=== PATIENT | male | born 1955 | race Caucasian/White ===

== ENCOUNTER 2019-04-11 02:04 | Inpatient (IN) ==
--- NOTE | 2019-04-11 03:38 | PROVIDER DOCUMENTATION ---
HPI-Abdominal Pain/GI Problem - General Chief Complaint: Urinary Retention Stated Complaint: EXTREMITY PAIN Time Seen by Provider: 04/11/19 03:33 Source: patient Allergies/Adverse Reactions: Patient Allergies Allergy/AdvReac Type Severity Reaction Status Date / Time No Known Allergies Allergy Verified 04/11/19 02:25 Home Medications: Home Medication List Medication Instructions Recorded Confirmed Last Taken Type Baclofen 10 mg PO ORDERED 04/11/19 04/11/19 Unknown History Linaclotide [Linzess] 2 cap PO ORDERED 04/11/19 04/11/19 Unknown History Lisinopril 5 mg PO DAILY 04/11/19 04/11/19 Unknown History - History of Present Illness-ABD Nature of Presenting Problems: 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 denies: fever/chills Last BM: 2 days ago Dark Stools Present?: reports: none noticed Rectal Bleeding: reports: none Bruising or Bleeding Gums?: No Similar Symptoms Previously?: No Recently seen or treated by another doctor?: No Review of Systems - Adult - REVIEW OF SYSTEMS - ADULT Constitutional: reports: no symptoms reported, weight loss Eyes: reports: no symptoms reported Ears, Nose, Mouth & Throat: reports: no symptoms reported Cardiovascular: reports: no symptoms reported Respiratory: reports: shortness of breath, wheezing Gastrointestinal: reports: constipation, diarrhea, nausea, poor appetite Genitourinary: reports: no symptoms reported, frequency Integumentary: reports: no symptoms reported Neurological: reports: no symptoms reported Psychiatric: reports: no symptoms reported Endocrine: reports: no symptoms reported Hematologic/Lymphatic: reports: no symptoms reported Allergic/Immunologic: reports: no symptoms reported Past History - Adult - PAST MEDICAL HISTORY-ADULT Review of Records: reports: Nursing Assessment Review, Medications Reviewed, Social history reviewed & non-contributory. Cardiovascular: reports: HTN Respiratory: reports: lung disease Gastrointestinal: reports: obstruction Genitourinary: reports: incontinence Physical Exam-General - PHYSICAL EXAM-ADULT Initial Vital Signs Reviewed: Yes - CONSTITUTIONAL General Appearance: alert, no apparent distress - HEAD, EARS, NOSE, MOUTH & THROAT HENMT: moist mucous membranes, normal ENT inspection - NECK Neck: supple - RESPIRATORY Respiratory: lungs clear - CARDIOVASCULAR Cardiovascular: regular rate, rhythm - GASTROINTESTINAL (ABDOMEN) Abdominal Exam: non tender, soft - LYMPHATIC Lymphatic: no adenopathy - MUSCULOSKELETAL Back Exam: no CVA tenderness - SKIN Integumentary: normal color, normal turgor Progress - PLAN OF CARE/RESULTS Progress/Plan/Lab Results: Vital Signs - 8 hr 04/11/19 02:20 Temperature 99.8 F H Pulse Rate 116 H Respiratory Rate 20 Blood Pressure 95/75 Result Diagrams: 04/13/19 04:25 04/14/19 04:10 - XRAY 1 XRAY Study: Abdomen (EXAM: KUB ABDOMEN HISTORY: constipated TECHNIQUE: Abdomen single view COMPARISON: 11/10/2016 FINDINGS: There is bowel in the right abdomen dilated to 10 cm. Gastric tube in the mid abdomen. The distal colon is not dilated. There are surgical clips in the right upper quadrant. No organomegaly. IMPRESSION: Obstructed dilated colon in the right abdomen. Possible distal obstruction or volvulus. Electronically signed by Silverio Juarez 04/11/2019 6:05 AM) Departure - Departure Date of Disposition Decision: 04/11/19 Time of Disposition Decision: 03:44 DIAGNOSIS: Bowel obstruction Qualifiers: Intestinal obstruction type: volvulus Qualified Code(s): K56.2 - Volvulus Disposition: ADMITTED INPATIENT 09 Certified Medical Emergency: Emergent Condition: Stable - Critical Care Note This patient required my direct & personal management of CC.: No Attestation - Physician/ LUIS Attestation Patient care was provided by Advanced Practice Provider:: No The physician spent face to face time with patient:: Yes Advanced Practice Provider documentation review:: Supervising physician onsite and consulted in the evaluation and care of this patient. The physician did have a face to face encounter with the patient.
[2019-04-11 04:30] LABS: BASO# 0.01 X1000 (0.0-0.2); BASO% 0.1 % (0.0-0.8); HEMATOCRIT 46.6 % (42.0-52.0); HEMOGLOBIN 15.8 g/dL (14.0-18.0); IMM GRAN# 0.04 X1000 (0.0-0.04); IMM GRAN% 0.2 % (0.0-0.5); LYMPH# 0.56 X1000 (1.2-3.4); LYMPH% 3.5 % (20.5-51.1); MCH 29.5 PG (27-31); MCHC 33.9 g/dL (33-37); MCV 87.1 FL (81-99); MONO# 0.69 X1000 (0.11-0.59); MONO% 4.3 % (1.7-9.3); MPV 9.9 FL (7.4-10.4); NEUT# 14.85 X1000 (1.4-6.5); NEUT% 91.9 % (42.2-75.2); PLT 213 X1000 (130-400); RBC 5.35 XMIL (4.7-6.1); RDW 14.1 % (11.5-14.5); WBC 16.15 X1000 (4.8-10.8)
[2019-04-11 04:42] LABS: AGAP 17; ALBUMIN 4.5 g/dL (3.5-5.0); ALKALINE PHOSPHATASE 81 U/L (32-122); BUN 21 mg/dL (8-22); CHLORIDE 101 mmol/L (98-107); COSMO 284; CREATININE 0.7 mg/dL (0.7-1.2); ESTIMATED GFR > 60; GLUCOSE 163 mg/dL (70-104); GOT 24 U/L (10-34); GPT 22 U/L (10-44); POTASSIUM 3.5 mmol/L (3.5-5.1); SODIUM 139 mmol/L (136-145); TCO2 21 mmol/L (25-35); TOTAL PROTEIN 7.3 g/dL (6.3-8.3)
[2019-04-11 05:59] LABS: BILIRUBIN URINE 1+ (NEGATIVE); BLOOD URINE 4+ (NEGATIVE); CLARITY CLEAR (CLEAR); COLOR AMBER; GLUCOSE URINE NEGATIVE (NEGATIVE); KETONE URINE 1+(Small) mg/dL (NEGATIVE); LEUKOCYTES URINE 1+ (NEGATIVE); NITRITE URINE POSITIVE (NEGATIVE); PH URINE 6.5; PROTEIN URINE 2+(100 mg/dL) mg/dL (NEGATIVE); UROBILINOGEN URINE 4 mg/dL
[2019-04-11 06:02] LABS: URINE EPITHELIAL CELLS <10 /HPF (<10); URINE WBC <10 /HPF (<10)
[2019-04-11 06:03] LABS: URINE BACTERIA 4+ /HFP; URINE RBC TNTC /HPF (<10); URINE YEAST NONE SEEN /HPF
[2019-04-11 06:04] LABS: URINE SOURCE CLEAN CATCH
--- NOTE | 2019-04-11 06:07 | Diag Imaging Result Doc PS360 ---
EXAM: KUB ABDOMEN HISTORY: constipated TECHNIQUE: Abdomen single view COMPARISON: 11/10/2016 FINDINGS: There is bowel in the right abdomen dilated to 10 cm. Gastric tube in the mid abdomen. The distal colon is not dilated. There are surgical clips in the right upper quadrant. No organomegaly. IMPRESSION: Obstructed dilated colon in the right abdomen. Possible distal obstruction or volvulus. Electronically signed by Silverio Juarez 04/11/2019 6:05 AM
[2019-04-11] MEDS ORDERED: NS 1,000 ML IV ONE ×2 (06:22→11:05)
[2019-04-11] MEDS ORDERED: LEVAQUIN 500 MG/D5W 500 MG/100 ML IVPB IV ONE (06:40)
[2019-04-11 07:10] LABS: INR 1.08; PROTIME 14.6 Seconds (11.0-16.0)
[2019-04-11 07:11] LABS: PTT 36.1 Seconds (22.3-41.8)
[2019-04-11] MEDS ORDERED: SODIUM CHLORIDE 0.9% INJ SCH (10:00)
[2019-04-11] MEDS ORDERED: NS 1,000 ML IV SCH (10:00)
[2019-04-11] MEDS ORDERED: PROTONIX IV SCH (10:00)
[2019-04-11] MEDS ORDERED: ZOFRAN IV PRN (10:00)
--- NOTE | 2019-04-11 10:22 | Diag Imaging Result Doc PS360 ---
CT ABDOMEN/PELVIS W/O CONTRAST - 04/11/2019 INDICATION: volvulus/obstruction COMPARISON: Abdomen x-ray from earlier today FINDINGS: Other than some mild atelectasis the lung bases are clear and the heart size is normal. There is a G-tube in the stomach which is mostly collapsed. The sigmoid colon is extremely distended with gas. There is also volvulus of the sigmoid colon. The rectum is collapsed. There is moderate pneumatosis coli of the sigmoid colon. No definite free air. There is trace ascites. There is diffuse dilation of all the small bowel with fluid. There is mild bilateral hydronephrosis. There is a small stone in each kidney measuring 2 mm on the right and 4 mm on the left. Ureters are normal. The prostate is enlarged. Urinary bladder appears normal. The bones are intact. IMPRESSION: Sigmoid colon volvulus with severe gaseous distention. There is also pneumatosis coli of the sigmoid colon. This report was discussed with RT Chelsey on 04/11/2019 at 10:20 AM and was readback. This exam was performed using automated exposure control, adjustment of mA or kV according to patient size, and/or use of iterative reconstruction technique Electronically signed by Hossein Gunter 04/11/2019 10:20 AM
--- NOTE | 2019-04-11 10:24 | Diag Imaging Result Doc PS360 ---
CHEST-1 VIEW - 04/11/2019 INDICATION: ALS, leukocytosis COMPARISON: 01/29/2011 FINDINGS: There is severe gaseous distention of the sigmoid colon which reaches all the way under the right hemidiaphragm. Lung volumes are severely low. There is some hazy atelectasis in the lung bases. Otherwise no infiltrates. Heart size is normal. IMPRESSION: Nonspecific findings. Electronically signed by Hossein Gunter 04/11/2019 10:22 AM
[2019-04-11] MEDS ORDERED: DIPRIVAN 1% ONE (11:34)
[2019-04-11] MEDS ORDERED: QUELICIN (DOSE) ONE (11:36)
[2019-04-11] MEDS ORDERED: ROBINUL ONE (11:36)
[2019-04-11] MEDS ORDERED: XYLOCAINE-MPF 2% ONE (11:36)
[2019-04-11] MEDS ORDERED: FENTANYL ONE (11:39)
--- NOTE | 2019-04-11 12:07 | EKG Report ---
Test Performed on : 04/11/2019 12:00:36 PM Test Reason : surgery Blood Pressure : / mmHG Vent. Rate : 118 BPM Atrial Rate : 118 BPM P-R Int : 194 ms QRS Dur : 080 ms QT Int : 286 ms P-R-T Axes : 043 -08 207 degrees QTc Int : 400 ms Sinus tachycardia. Septal infarct , age undetermined Abnormal ECG When compared with ECG of 29-JAN-2011 15:23, Vent. rate has increased BY 60 BPM Nonspecific T wave abnormality now evident in Inferior leads T wave inversion now evident in Lateral leads Increased baseline artifact limits interpretation Confirmed by Danette DUMONT, Brandan Chacko ([id number]) on 04/11/2019 1:23:29 PM
[2019-04-11] MEDS ORDERED: MARCAINE 0.25% PF ONE (12:14)
[2019-04-11] MEDS ORDERED: SODIUM CHLORIDE 0.9% 10 ML ONE (12:15)
[2019-04-11] MEDS ORDERED: EXPAREL 1.3% ONE (12:15)
[2019-04-11] MEDS ORDERED: ZOFRAN ONE (12:32)
[2019-04-11] MEDS: ZOSYN 3.375 GM in NS 50 ML IV SCH ×3 (12:34→23:23)
[2019-04-11] MEDS ORDERED: ZEMURON ONE ×2 (13:13→13:28)
[2019-04-11] MEDS ORDERED: ALBUMIN 25% ONE (13:40)
[2019-04-11] MEDS ORDERED: SODIUM CHLORIDE 0.9% 20 ML ONE (14:21)
[2019-04-11] MEDS ORDERED: NEO-SYNEPHRINE ONE (14:21)
[2019-04-11] MEDS ORDERED: NORCURON ONE (14:21)
[2019-04-11 14:40] LABS: URINE SOURCE CATH
[2019-04-11 14:44] LABS: BILIRUBIN URINE NEGATIVE (NEGATIVE); BLOOD URINE MODERATE (NEGATIVE); COLOR ORANGE; GLUCOSE URINE NEGATIVE (NEGATIVE); KETONE URINE 10 mg/dL (NEGATIVE); LEUKOCYTES URINE NEGATIVE (NEGATIVE); NITRITE URINE NEGATIVE (NEGATIVE); PH URINE 5.5; PROTEIN URINE 100 mg/dL (NEGATIVE); SP GRAVITY URINE 1.027; TURBIDITY URINE HAZY (CLEAR); UROBILINOGEN URINE 2 mg/dL (NORMAL)
[2019-04-11 14:52] LABS: UR EPITHELIAL CELLS <10 /HPF (<10); URINE BACTERIA NEGATIVE /HPF; URINE RBC 20-40 /HPF (<10); URINE WBC 20-40 /HPF (<10)
--- NOTE | 2019-04-11 14:56 | HISTORY AND PHYSICAL ---
CHIEF COMPLAINT: Abdominal pain, back pain, and nausea. HISTORY OF PRESENT ILLNESS: This is a 63-year-old gentleman with a history of ALS and hypertension. He presented to the emergency room with his complaining of constipation, back pain, and decreased urinary output. Mr. Muniz has a set bowel regimen that they keep on Tuesdays and . The stated that the patient had been in his normal state of health, that on Wednesday she gave him his normal 2 Linzess pills, and 2 hours later gave him coffee and prune juice. He had no bowel movement, very little urine output. He began to get nauseated and have back pain. Therefore, she brought him into the emergency room for evaluation. Of note, the patient is nonverbal. He does communicate with an iPad as well as he nods yes and no. Bladder scan was performed in the emergency room, 145 mL. A KUB revealed obstructed dilated colon in the right abdomen, dilated to 10 cm with possible distal obstruction or volvulus. Dr. Contreras, General Surgery, and Dr. Cobb, Gastroenterology, were consulted. CT of the abdomen and pelvis without contrast was performed which revealed sigmoid colon volvulus with severe gases distention with pneumatosis coli of the sigmoid colon. Dr. Contreras and Dr. Cobb did discuss the results of the scan as well as options with the patient and his and it was decided that the patient will be taken to surgery for a colon resection and a colostomy. PAST MEDICAL HISTORY: Hypertension, ALS. PAST SURGICAL HISTORY: Cholecystectomy, G-tube insertion, and vasectomy. SOCIAL HISTORY: The patient lives with his . He denies alcohol, tobacco, or illicit drug use. ALLERGIES: No known drug allergies. HOME MEDICATIONS: Baclofen, Linzess 2 times a week, and lisinopril 5 mg daily. REVIEW OF SYSTEMS: Discussed with the patient and the with pertinent positives as stated in the HPI. He denied any syncope or dizziness, any chest pain, palpitations, any increased shortness of breath, cough, fever, chills, any vomiting, diarrhea, black or bloody vomitus or stools, any hematuria, dysuria, frequency, urgency. PHYSICAL EXAMINATION: GENERAL: This is a 63-year-old gentleman who is sitting up in the bed, in no distress. VITAL SIGNS: Blood pressure is 110/82 with a heart rate of 118, respirations are 20 to 22, temperature is 98.1 degrees, with O2 saturations 91 to 94% on 2 L nasal cannula. HEENT: Head is normocephalic, atraumatic. Mucous membranes are dry. NECK: Supple with trachea midline. No JVD. CARDIOVASCULAR: Regular rate and rhythm. S1 and S2 appreciated. He has no lower extremity edema. Calves are nontender bilateral. Peripheral pulses palpable x4 extremities. PULMONARY: Breath sounds are clear. No increased work of breathing noted. Chest rises and falls symmetrically with respiration. Chest wall is nontender to palpation. GASTROINTESTINAL: Abdomen is soft, nontender, nondistended. Bowel sounds in all 4 quadrants. NEUROLOGIC: He is alert. He is nonverbal. He does nod yes and no and communicates with an iPad. LABS: WBC is 16.1, with hemoglobin 15.8, hematocrit 46.6, with platelets of 213,000. INR is 1.08. Sodium 139, potassium 3.5, BUN 21, creatinine 0.7, with a glucose of 163. Urinalysis is positive for nitrites with 1+ bilirubin, too numerous to count red blood cells, less than 10 microscopic and epithelial cells. Blood cultures and urine culture are pending. Abdominal x-ray reveals to obstructed dilated colon in the right abdomen, possible distal obstruction or volvulus. CT of the abdomen and pelvis without contrast reveals sigmoid colon volvulus with severe gaseous distention and pneumatosis coli of the sigmoid colon. Chest x-ray reveals nonspecific findings. There is some hazy atelectasis in the lung bases. Otherwise, no infiltrates. There is gaseous distention of the sigmoid colon which reaches all the way under the right hemidiaphragm. Lung volumes are severely low. ASSESSMENT AND PLAN: 1. Sigmoid colon volvulus with severe gaseous distention with pneumatosis coli of the sigmoid colon. The patient will be taken to surgery for a colostomy and colon resection per Dr. Contreras. We will start Zosyn for antibiotic coverage. Continue with IV hydration. 2. Leukocytosis secondary to above. Antibiotics as stated above. 3. Hypertension. We will monitor blood pressure and we can continue vital signs as appropriate. 4. Tachycardia. The patient is dry. We will give a liter bolus, start saline at 125, and further IV fluids will be per Dr. Contreras postop. 5. Amyotrophic lateral sclerosis. 6. Bilateral atelectasis in the bases. We will have diligent pulmonary care secondary to the patient's ALS. Start incentive spirometer q.4 hours with coughing and deep breathing. Supplemental oxygen as needed. 7. Further treatments pending hospital course. Plan was discussed with Dr. Daniel. Dictated by JUAN M Acosta for Erick Daniel MD cc: JUAN M Acosta MD
--- NOTE | 2019-04-11 14:59 | GASTROENTEROLOGY CONSULTATION ---
DATE: 04/11/2019 REASON FOR CONSULTATION: Sigmoid volvulus. HISTORY OF PRESENT ILLNESS: Mr. Bharat Muniz is a 63-year-old gentleman with a history of hypertension, ALS with paraplegia and partial quadriplegia, status post PEG, and chronic constipation, who presents with a 1-day history of obstipation. History is obtained by the patient's . The patient is on a scheduled bowel regimen through his PEG tube every Wednesday and when he receives oral Linzess, prune juice, coffee, and water through his PEG tube. This regimen usually results in him having a bowel movement. Occasionally, he will need a Dulcolax suppository if he does not have an adequate response. Yesterday, after being given his usual bowel regimen for constipation, he had a tiny bowel movement and then subsequently developed severe back pain and increased work of breathing and sweats. They called his primary care doctor who recommended that he come to the emergency room to be evaluated for a fecal impaction. He has some nausea with scant emesis that was nonbloody. No fevers, hematochezia, abdominal pain, abdominal distention. He has a history of fecal impactions in the past requiring enemas for disimpaction. His last colonoscopy was in 2006 which was unremarkable. He does have a family history of colon cancer in his father, diagnosed in his 60s. REVIEW OF SYSTEMS: As per HPI. He does have lower extremity and upper extremity weakness. He is paraplegic in the lower extremities. He is able to control his urination and bowels. No history of incontinence. He is nonverbal at baseline but uses an I-Pad to communicate and is able to communicate through gestures. No weight loss over the last 6 months. He was in his usual state of health until yesterday. PAST MEDICAL HISTORY: ALS, hypertension, status post PEG. PAST SURGICAL HISTORY: Cholecystectomy, PEG tube placement in 2013, vasectomy. FAMILY HISTORY: Family history of colorectal cancer in the father. SOCIAL HISTORY: No smoking, alcohol, or drug use. MEDICATIONS: Linzess, baclofen, and lisinopril. ALLERGIES: No known drug allergies. PHYSICAL EXAMINATION: Vital Signs: Temperature of 98.0 degrees, heart rate of 118, respiratory rate 24, blood pressure 110/82, O2 saturation 91% on 3 L nasal cannula. General: The patient chronically ill-appearing, in no acute distress. HEENT: He has some temporal wasting. Extraocular motor is intact. Moist mucous membranes. Neck: Supple. No JVD or lymphadenopathy. Cardiac: He is tachycardic. No murmurs. Lungs: Clear to auscultation bilaterally. He does have some mild increased work of breathing. Abdomen: Tympanic in the lower abdomen. Some mild tenderness to palpation on deep palpation in the left and right lower quadrants. Extremities: No clubbing, cyanosis, or edema. He does have some contractures in his upper extremities. LABS: White count of 16.1, hemoglobin is 14.8, platelets of 213,000. INR of 1.08. Chemistry showed a glucose of 163, bicarb 21, lactate of 1.8. UA shows positive nitrite and 1+ white blood cells. IMAGING: KUB shows the bowel dilation in the right abdomen measuring 10 cm. There is a gastric tube in the mid abdomen. The distal colon is not dilated. There are surgical clips in right upper quadrant. No organomegaly. Impression: Obstructed dilated colon in the right abdomen, possible distal obstruction versus volvulus. CT of the abdomen and pelvis subsequently showed sigmoid volvulus with severe gaseous distention. There is pneumatosis coli of the sigmoid colon. There is trace ascites, mild bilateral hydronephrosis. There is a small stone in the kidney measuring 2 mm on the right and 4 mm on the left. Ureters are normal. The prostate and large urinary bladder appear normal. G-tube in the stomach which is mostly collapsed. ASSESSMENT AND PLAN: Mr. Bharat Muniz is a 63-year-old gentleman with amyotrophic lateral sclerosis and paraplegia, upper extremity week. Presents with a sigmoid volvulus and signs of possible bowel necrosis with pneumatosis coli in the sigmoid colon. I have discussed this case with Dr. Contreras of surgery and the family at bedside. The patient is a high risk for complications with endoscopic reduction of volvulus given the pneumatosis coli seen on sigmoid. He does have some tachycardia and a white count, concerning for systemic inflammatory response syndrome. He was started on Levaquin for a possible urinary tract infection. We will start him on intravenous fluids and put him on empiric Zosyn for possible infection. The patient is nothing per oral and the plan is for him to go to surgery for a partial colectomy with end colostomy. # Sigmoid volvulus # Pneumatosis coli # SIRS # Leukocytosis # Constipation # ALS Thank you for this consult. We will follow with you. Please call with any questions or concerns. ESTEVAN
[2019-04-11 15:09] LABS: URINE CASTS GRANULAR PRESENT; URINE CRYSTALS NONE SEEN; URINE SMALL ROUND CELLS TRANS PRESENT; URINE YEAST PRESENT
--- NOTE | 2019-04-11 15:17 | GENERAL SURGERY CONSULTATION ---
DATE: 04/11/2019 REASON FOR CONSULTATION: Sigmoid volvulus. HISTORY OF PRESENT ILLNESS: This is a 63-year-old male with long-standing ALS, who normally has scheduled bowel movements twice a week. After a bowel prep yesterday, he did not respond to his usual bowel prep and began complaining of nausea and back pain, which was unusual for him. He was brought to the emergency room for evaluation and was found to have evidence of sigmoid volvulus. He has subsequently undergone a CT scan which shows sigmoid volvulus and pneumatosis coli in the wall of the sigmoid colon. There is no free air. Currently, he is still complaining of some back pain. No relieving or exacerbating factors. No known fever or chills. He had a little bit of vomiting. PAST MEDICAL HISTORY: ALS, hypertension, constipation. HOME MEDICATIONS: Baclofen, Linzess, lisinopril. PAST SURGICAL HISTORY: Laparoscopic cholecystectomy, multiple gastrostomy tube placements. FAMILY HISTORY: Reviewed and noncontributory. SOCIAL HISTORY: Negative for tobacco, alcohol or illicit drug use. He is cared for by a very attentive family. ALLERGIES: No known drug allergies. REVIEW OF SYSTEMS: Ten systems reviewed and negative, except as noted above. PHYSICAL EXAMINATION: Vital Signs: Temperature 98 degrees, pulse 118, blood pressure 110/82, O2 saturation 91%, respiratory rate 24. General: This is a chronically ill-appearing male. He looks his stated age. HEENT: Normocephalic, atraumatic. Extraocular muscles are intact. Pupils equal, round, reactive to light. Sclerae anicteric. Neck: Supple. No thyromegaly. CV: Tachycardic. Respiratory: Mildly tachypneic, but without increased work of breathing. GI: Somewhat firm, mildly distended and tympanic. There is some tenderness to palpation throughout. The exam is limited by the patient's ALS. No hernias appreciated. Extremities: His arms and hands are contracted. There is no clubbing or cyanosis or edema of the legs. Skin: Warm and dry. No rash. LABORATORY: White cell count 16, hemoglobin 15.8, hematocrit 46. Electrolytes reviewed and unremarkable. Serum lactate 3.6 on presentation, 1.8 at 8:50 this morning. Urinalysis appears to be positive with 4+ bacteria and positive nitrite. IMAGING: Plain abdominal x-rays and CT scan of the abdomen reveal sigmoid volvulus with possible ischemia in the wall of the colon. ASSESSMENT AND PLAN: A 63-year-old male with sigmoid volvulus with concern for ischemic bowel. We will proceed urgently to the operating room for sigmoidectomy and end colostomy. He will be given a liter of bolus, as well as start him on Zosyn. I discussed the risks and benefits with the patient and family, including bleeding, infection, injury to surrounding organs, postoperative cardiopulmonary complications, including respiratory failure and other imponderables. They understand and agree to proceed. cc: Toan Contreras MD
--- NOTE | 2019-04-11 15:44 | Diag Imaging Result Doc PS360 ---
CHEST-1 VIEW - 04/11/2019 INDICATION: intubation COMPARISON: 10:13 AM FINDINGS: There is an endotracheal tube in good position at T4-T5. Lung volumes are improved. There is decrease in the patchy infiltrates in the lung bases. Heart size is normal. IMPRESSION: Successful intubation. Improvement in the patchy infiltrates in the lung bases. Electronically signed by Hossein Gunter 04/11/2019 3:41 PM
[2019-04-11 15:52] LABS: ALLEN TEST YES; BE -1.9 mmoll (-3.0-3.0); BLOOD TYPE ARTERIAL; HCO3-(ACT) 23.4 mmoll (20.0-26.0); METHB 1.4 % (0.0-1.5); O2(CT) 19.1 mL/dL (15.0-23.0); O2HB 97.3 % (95.0-99.0); PO2(98.6) 215 mmHg (60-100); SAMPLE BLOOD; SAO2 100.4 % (95.0-100.0); SRATE 10 BPM; THB 13.6 g/dL (11.5-17.4); TVOL 500 mL; pH(98.6) 7.29 (7.35-7.45)
[2019-04-11 15:54] LABS: MODALITY VENTILATOR; PCO2(98.6) 53 mmHg (35-45)
[2019-04-11] MEDS ORDERED: ATIVAN IV PRN (16:25)
[2019-04-11] MEDS ORDERED: NS 500 ML IV ONE (16:27)
[2019-04-11 16:55] LABS: HEMATOCRIT 41.6 % (42.0-52.0); HEMOGLOBIN 13.9 g/dL (14.0-18.0)
[2019-04-11] MEDS: NS 1,000 ML IV SCH ×2 (16:58→17:42)
[2019-04-11] MEDS: MORPHINE IV PRN (17:43)
[2019-04-11] MEDS: NEXIUM IV SCH (18:21)
[2019-04-11] MEDS: SODIUM CHLORIDE 0.9% INJ SCH (18:21)
[2019-04-11] MEDS ORDERED: DIPRIVAN 1% 1,000 MG/100 ML BOTTLE IV SCH (18:45)
[2019-04-11] MEDS: SODIUM BICARBONATE 8.4% 100 MEQ in D5W 1,000 ML IV SCH (20:27)
[2019-04-11] MEDS: PERIDEX MT SCH (20:27)
--- NOTE | 2019-04-11 20:51 | OPERATIVE NOTE ---
PROCEDURE DATE: 04/11/2019 PREOPERATIVE DIAGNOSIS: Sigmoid volvulus with ischemic bowel. POSTOPERATIVE DIAGNOSIS: Sigmoid volvulus with ischemic bowel. PROCEDURE: Open sigmoidectomy with Vamsi pouch and end colostomy. SURGEON: Toan Contreras MD PATENT DRAFTER: Efrain Mensah MD ANESTHESIA: General. ESTIMATED BLOOD LOSS: 50 mL COMPLICATIONS: None apparent. SPECIMEN: Sigmoid colon. FINDINGS: The sigmoid colon had volvulus and was very distended. There was evidence along a short segment of the sigmoid wall of ischemia and probable gangrene; however, there was no gross perforation. There was no abscess. At the conclusion, his colostomy had good viability, color and blood flow to it, and the rectal stump also appeared to be viable. TECHNIQUE: The patient was brought to the operating room. He was placed on the table supine. General anesthesia was induced. A Lisa catheter was placed he was prepped and draped in usual sterile fashion. A lower midline incision was made with a knife through the skin and subcutaneous tissue, followed by cautery down to the fascia and peritoneum. I entered the peritoneum carefully between hemostats and Metzenbaum scissors. While trying to open up the peritoneum and fascia, his abdominal wall was quite rigid and the printed circuit board designer informed me that he apparently was resistant to his muscle relaxant. They were able to give him another dose or a second muscle relaxant, and this did help some with his abdominal wall mobility. To get better exposure, I did have to extend the incision up to nearly the xiphoid process. Dr. Mensah was present throughout all turner aspects of the case and assisted with exposure, the resection and the creation of the colostomy. Once the linea alba was completely incised, his sigmoid colon was found easily. It was very enlarged and ischemic appearing. I was able to manipulate it out of the abdominal cavity and eviscerate it. When this was done I was able to correct the volvulus. There was no gross contamination. A segment of the sigmoid wall did appear to be at least ischemic if not gangrenous. I decided to do the resection with a colostomy as planned. I stapled across the sigmoid/descending colon junction where it appeared viable, with a linear stapler and then across the rectosigmoid junction in the same fashion. The stapled ends of our proximal colon and rectal stump appeared to be viable. They had good color with pulsatile flow in the mesentery. I then divided the mesentery of the sigmoid colon using the LigaSure device, coming across the inferior mesenteric artery with the LigaSure device as well. Once the colon was removed, I inspected the mesentery. There were no signs of any bleeding or hematoma. I then made a circular incision just on the lateral edge of the rectus below the umbilicus, and incised through the rectus muscle with cautery so that I could admit 2 fingers through this wound. The stapled end of the descending colon was brought up through the wound. We then closed the peritoneum with a running #1 Vicryl and then closed the fascia with a running #1 looped Maxon suture. The skin was closed with skin clips. I then covered the incision with a blue towel. I removed the staple line from the stoma. There was good pink mucosa with some with bleeding edges. The bleeding was controlled with cautery. I then everted and matured the ostomy in a Lindsey fashion using interrupted 3-0 Polysorb. An ostomy appliance was placed. He tolerated this surgery without apparent complication, and was transferred to the ICU in guarded condition. cc: Toan Contreras MD MTDD
--- NOTE | 2019-04-11 21:11 | PROGRESS NOTE ---
DATE: 04/11/2019 The patient has no major complaints. He came in for abdominal pain. He has a ALS and bowel issues associated. He has developed significant obstruction in his colon. On abdominal exam, it was a tight tympanic abdomen. CT showed a sigmoid colon volvulus and pneumatosis. He underwent surgery. Postop, he is seen. He is intubated and still on the ventilator with heart rate in the 130s, which appears to be a sinus tach. He is currently on IV Zosyn, and we will continue to monitor closely. His relative tachycardia may be complicated, just blood loss, dehydration, sepsis. We will continue to treat these measures and follow. I do think we need to aggressively extubate because of his ALS issues, but I also do not think we need to excessively focus on extubation in light of possible sepsis and other issues. Agree with Zosyn and hydration. We will monitor his hemoglobin and hematocrit closely and follow. Pulmonary has been consulted for ventilatory management. This is a 32 minute dictation. cc: Erick Daniel MD MTDD
[2019-04-12] MEDS: SODIUM BICARBONATE 8.4% 100 MEQ in D5W 1,000 ML IV SCH (03:36)
--- NOTE | 2019-04-12 04:27 | PULMONOLOGY CONSULTATION ---
DATE: 04/11/2019 REQUESTING PHYSICIAN: Dr. Toan Contreras. REASON FOR CONSULTATION: Respiratory failure after surgery. HISTORY OF PRESENT ILLNESS: Mr. Muniz is a 63-year-old white male who was diagnosed with ALS approximately 10 years ago. He has had progressive decline. He is essentially bedbound. He does use a BiPAP on a p.r.n. basis. The patient presented to the emergency room early this morning with increasing abdominal distention and pain, and a failed routine of his bowel regimen. CT scan of the abdomen and pelvis was performed, which was consistent with a sigmoid volvulus and severe distention along with pneumatosis coli of the sigmoid colon. He was taken to the operating room by Dr. Toan Contreras and underwent a colonic resection. His ventilatory status was marginal and anesthesia has recommended he remain on mechanical ventilation through the evening. PAST MEDICAL HISTORY: 1. ALS with some ventilatory limitation. 2. Hypertension. 3. Status post gastrostomy tube placement. 4. Status post laparoscopic cholecystectomy. SOCIAL HISTORY: Negative for tobacco or alcohol use. He has a very attentive . FAMILY HISTORY: Noncontributory to current presentation. REVIEW OF SYSTEMS: Limited given his intubation status. PHYSICAL EXAMINATION: General: Reveals a thin man, chronically ill-appearing male with muscle wasting, who does respond to voice. He is having some cough attempts while on mechanical ventilation. Vital signs: Blood pressure 124/87, heart rate 99, respiratory rate 20, oxygen saturation 100%. HEENT: Pupils are equal and reactive. Oropharynx appears clear, but evaluation is limited with endotracheal tube in place. There is increased secretions. Neck: Supple. Chest: Reveals occasional rhonchi bilaterally. Cardiac: Increased rate. Regular rhythm. Abdomen: Soft with surgical dressings in place. Extremities: Reveal significant muscle wasting and increased flaccidity of his major muscle groups. LABORATORIES: Chest x-ray reveals endotracheal tube in good position with bibasilar infiltrates, which are less prominent than his morning film. IMPRESSION: A 63-year-old with 1. Amyotrophic lateral sclerosis. 2. Colonic volvulus requiring urgent surgery. 3. Acute hypoxemic respiratory failure. 4. Bibasilar atelectasis. RECOMMENDATION: 1. Continue ventilatory support through the evening. 2. We will collect sputum for C and S given the minor changes on x-ray. 3. We will initiate bronchodilators for pulmonary toilet. 4. Sedation as needed for comfort through the evening. 5. Anticipate weaning trial with possible extubation tomorrow. cc: Magnus Iyer MD
[2019-04-12 04:29] LABS: ALLEN TEST YES; BE 5.7 mmoll (-3.0-3.0); BLOOD TYPE ARTERIAL; HCO3-(ACT) 29.4 mmoll (20.0-26.0); O2(CT) 16.9 mL/dL (15.0-23.0); O2HB 97.8 % (95.0-99.0); PCO2(98.6) 33 mmHg (35-45); PO2(98.6) 148 mmHg (60-100); SAMPLE BLOOD; SAO2 100.2 % (95.0-100.0); SRATE 10 BPM; THB 12.1 g/dL (11.5-17.4); TVOL 500 mL; pH(98.6) 7.54 (7.35-7.45)
[2019-04-12 04:30] LABS: MODALITY VENTILATOR
[2019-04-12] MEDS: ZOSYN 3.375 GM in NS 50 ML IV SCH ×4 (04:33→23:16)
[2019-04-12 05:43] LABS: HEMATOCRIT 34.9 % (42.0-52.0); HEMOGLOBIN 11.7 g/dL (14.0-18.0); LYMPH# 0.71 X1000 (1.2-3.4); LYMPH% 8.4 % (20.5-51.1); MCH 29.6 PG (27-31); MCHC 33.5 g/dL (33-37); MCV 88.4 FL (81-99); MONO# 0.46 X1000 (0.11-0.59); MONO% 5.4 % (1.7-9.3); MPV 10.4 FL (7.4-10.4); NEUT# 7.33 X1000 (1.4-6.5); NEUT% 86.2 % (42.2-75.2); PLT 158 X1000 (130-400); RBC 3.95 XMIL (4.7-6.1)
[2019-04-12 05:51] LABS: MAGNESIUM 1.6 mg/dL (1.5-2.7); PHOSPHORUS 1.8 mg/dL (2.7-4.5)
[2019-04-12 05:58] LABS: AGAP 8; ALB/GLOB RATIO 1.4; ALBUMIN 2.8 g/dL (3.5-5.0); ALKALINE PHOSPHATASE 46 U/L (32-122); BUN 18 mg/dL (8-22); CALCIUM 7.7 mg/dL (8.8-10.2); CHLORIDE 104 mmol/L (98-107); COSMO 279; CREATININE 0.5 mg/dL (0.7-1.2); ESTIMATED GFR > 60; GLUCOSE 120 mg/dL (70-104); GOT 28 U/L (10-34); GPT 18 U/L (10-44); POTASSIUM 3.2 mmol/L (3.5-5.1); SODIUM 138 mmol/L (136-145); TCO2 26 mmol/L (25-35); TOTAL BILIRUBIN 0.79 mg/dL (0.20-1.00); TOTAL PROTEIN 4.8 g/dL (6.3-8.3)
[2019-04-12] MEDS ORDERED: LEVAQUIN 500 MG/D5W 500 MG/100 ML IVPB IV SCH (06:00)
--- NOTE | 2019-04-12 06:45 | Diag Imaging Result Doc PS360 ---
CHEST-PORTABLE - 04/12/2019 INDICATION: dyspnea COMPARISON: 04/11/2019 FINDINGS: Stable endotracheal tube in good position. Stable mild hazy atelectasis in the lower lobes bilaterally, right greater than left. No new infiltrates. Heart size remains top normal. No pneumothorax or large pleural effusion. IMPRESSION: No change from prior. Electronically signed by Hossein Gunter 04/12/2019 6:43 AM
[2019-04-12 07:36] LABS: LYMPHS 10 % (21-51); SEGS 90 % (42-75)
[2019-04-12 09:29] LABS: ALLEN TEST YES; BE 9.4 mmoll (-3.0-3.0); BLOOD TYPE ARTERIAL; HCO3-(ACT) 32.3 mmoll (20.0-26.0); METHB 1.2 % (0.0-1.5); MODALITY VENTILATOR; O2(CT) 15.8 mL/dL (15.0-23.0); O2HB 97.1 % (95.0-99.0); PCO2(98.6) 37 mmHg (35-45); PO2(98.6) 117 mmHg (60-100); SAMPLE BLOOD; SAO2 99.5 % (95.0-100.0); THB 11.4 g/dL (11.5-17.4); pH(98.6) 7.55 (7.35-7.45)
[2019-04-12] MEDS ORDERED: POTASSIUM PHOSPHATE IV ONE (09:45)
[2019-04-12] MEDS ORDERED: POTASSIUM CHLORIDE IV ONE (09:45)
[2019-04-12] MEDS ORDERED: D5W IV ONE (09:45)
[2019-04-12] MEDS: LOVENOX SUBQ SCH (10:05)
[2019-04-12] MEDS: PERIDEX MT SCH ×3 (10:05→21:22)
--- NOTE | 2019-04-12 12:44 | PULMONOLOGY PROGRESS NOTE ---
DATE: 04/12/2019 SUBJECTIVE: The patient is awake and alert. He does respond to practitioner. He appears to be comfortable on mechanical ventilation. OBJECTIVE: Vital Signs: Maximum temperature in the last 24 hours 100.0 degrees, BP 100/73, heart rate 78, respiratory rate 11, and oxygen saturation 99% HEENT: Pupils are equal and reactive. Oropharynx appears clear. Neck: Supple. Lungs: Chest reveals crackles in both lung bases. Cardiac: S1 and S2. Abdomen: Soft. No bowel sounds present. Extremities: Reveal decreased muscle mass with generalized weakness. LABORATORIES: Arterial blood gas reveals a pH of 7.54, pCO2 of 33, PO2 of 148. Sodium 138, potassium 3.2, chloride 104, bicarbonate 26, BUN 18, creatinine 0.5, phosphorus 1.8, magnesium 1.6, TSH 1.12, and cortisol 24.9. White blood count 8.50, hemoglobin 11.7, and platelet count of 158,000. Chest x-ray reveals atelectasis in the bases, right greater than left without change from yesterday's film. IMPRESSION: A 63-year-old with the followin. Amyotrophic lateral sclerosis. 2. Acute hypoxemic respiratory failure. 3. Bibasilar atelectasis. 4. Status post bowel resection for colonic volvulus. PLAN: 1. Replace phosphorus and potassium. 2. Discontinue sodium bicarbonate fluids. 3. Collect sputum for C and S. 4. Initiate spontaneous breathing trial. Anticipate extubation today with transitioning to BiPAP if tolerated. TIME SPENT ON CRITICAL CARE MANAGEMENT: 35 minutes. cc: Magnus Iyer MD MTDD
[2019-04-12] MEDS ORDERED: POTASSIUM PHOSPHATE 40 MEQ in NS 250 ML IV ONE (12:49)
--- NOTE | 2019-04-12 14:47 | PROGRESS NOTE ---
DATE: 04/12/2019 SUBJECTIVE: He is extubated. He is breathing comfortably. OBJECTIVE: Vital Signs: Blood pressure is 116/78, heart rate 95, respiratory rate 19, temperature 98.6 degrees, saturating 99% on 40%. Cardiovascular: Regular rate and rhythm. Pulmonary: Diminished at the bases. GI: Soft, nontender, nondistended. Bowel sounds were positive. LABORATORY DATA: White count 8, hemoglobin and hematocrit 11 and 34, platelets 158,000. PH 7.55, pCO2 of 37, PaO2 of 117. Potassium 3.2. Phosphorus of 1.8. Albumin of 2.8. PROBLEM LIST: 1. Sigmoid volvulus with possible ischemic bowel. We will continue treatment. He is postoperative day 1, colostomy. There is some fluid in there, and he does seem improved. Surgical care per Dr. Contreras. 2. Hypoxic respiratory failure associated with sepsis and ischemic gut. He is off the ventilator. He is doing very well. Dr. Iyer is following. Greatly appreciate his assistance. 3. Amyotrophic lateralizing sclerosis. He is stable. Fortunately, we have been able to avoid intubation or excessive mechanical ventilation. 4. Pneumonia. He is empirically on antibiotics. We will complete the 7-day course, but I would not do much more than that. 5. Hypokalemia and hypophosphatemia, supplemented. Will check those levels tomorrow. 6. Disposition pending clinical data. cc: Erick Daniel MD
[2019-04-12] MEDS: SODIUM CHLORIDE 0.9% INJ SCH (17:56)
[2019-04-12] MEDS: NEXIUM IV SCH (17:56)
--- NOTE | 2019-04-12 18:34 | GENERAL SURGERY PROGRESS NOTE ---
DATE: 04/12/2019 SUBJECTIVE: The patient is awake, still intubated, but able to answer some questions with head nods. He denies significant pain. He reports feeling better, especially in his back. OBJECTIVE: Vital Signs: He is afebrile. Vital signs are stable. Urine output was 520 mL recorded. G-tube output 200 mL. General: He is awake. He appears alert. He does follow commands, or at least answers questions. Respiratory: Bilateral breath sounds without tachypnea. He appears comfortable on the vent. CV: Regular rate and rhythm. GI: Soft, nondistended, minimally tender. Incisional dressing is clean and dry. LABORATORY: White blood cell count 8.5, hemoglobin 11.7, hematocrit 34.9. PH 7.54, pCO2 33, PaO2 148, bicarb 29. Basic metabolic profile was reviewed and unremarkable. IMAGING: His chest x-ray this morning shows hazy atelectasis, right greater than left. No large pleural effusion. No new infiltrates. ASSESSMENT AND PLAN: A 63-year-old male, postoperative day 1 sigmoidectomy with colostomy for sigmoid volvulus. He has amyotrophic lateral sclerosis. Currently, he appears stable and I would be hopeful that he could wean to extubate today. I would allow him to have sips of clears over the next 24 hours, and I would continue his Zosyn for now. cc: Toan Contreras MD
[2019-04-12] MEDS: MORPHINE IV PRN (23:15)
--- NOTE | 2019-04-12 23:48 | PROVIDER PROGRESS NOTE ---
Progress Note S: Patient underwent sigmodectomy with end-colostomy with Vamsi's pouch yesterday with Dr. Contreras. No acute overnight events. He remains intubated. He is starting some have small outpatient from colostomy. No N/V. G-tube is to gravity. Patient denies SOB or abdominal pain. O: Last Vital Signs Temp 99.4 F 04/12/19 20:00 Pulse 98 H 04/12/19 23:02 Resp 19 04/12/19 23:02 BP 123/85 04/12/19 23:02 Pulse Ox 97 04/12/19 23:02 Height 6 ft Weight 151 lb GEN: awake, NAD, nods to questions appropriately HEENT: anicteric, ET tube in place PULM: CTAB anteriorly CV: RRR, no murmurs ABD: midline incision with dressing c/d/i, brown scant liquid stool in colostomy LLQ, PEG draining yellow fluid EXT: no cce NEURO: paraplegia, UE contractures and weakness LABS: 04/12/19 04/12/19 04:15 04:15 WBC 8.50 Hgb 11.7 L D Plt Count 158 Sodium 138 Potassium 3.2 L Chloride 104 Carbon Dioxide 26 BUN 18 Creatinine 0.5 L A/P: Mr. Bharat Muniz is a 63-year-old gentleman with amyotrophic lateral sclerosis with LE and UE weakness who presented with sigmoid volvulus s/p sigmoidectomy and end-colostomy without complications. He is doing well post-operatively. Defer post-operative mgmt to surgery. Please call with questions.
[2019-04-13 04:31] LABS: ALLEN TEST YES; BE 6.1 mmoll (-3.0-3.0); BLOOD TYPE ARTERIAL; HCO3-(ACT) 29.7 mmoll (20.0-26.0); METHB 1.2 % (0.0-1.5); O2(CT) 16.8 mL/dL (15.0-23.0); O2HB 97.3 % (95.0-99.0); PCO2(98.6) 38 mmHg (35-45); PO2(98.6) 148 mmHg (60-100); SAMPLE BLOOD; SAO2 100.1 % (95.0-100.0); THB 12.1 g/dL (11.5-17.4)
[2019-04-13 04:34] LABS: MODALITY BI PAP
[2019-04-13] MEDS: ZOSYN 3.375 GM in NS 50 ML IV SCH ×4 (05:56→23:17)
[2019-04-13 06:34] LABS: HEMATOCRIT 35.4 % (42.0-52.0); HEMOGLOBIN 11.6 g/dL (14.0-18.0); LYMPH# 0.81 X1000 (1.2-3.4); LYMPH% 12.8 % (20.5-51.1); MCH 29.4 PG (27-31); MCHC 32.8 g/dL (33-37); MCV 89.8 FL (81-99); MONO# 0.37 X1000 (0.11-0.59); MONO% 5.8 % (1.7-9.3); MPV 10.5 FL (7.4-10.4); NEUT# 5.16 X1000 (1.4-6.5); NEUT% 81.4 % (42.2-75.2); PLT 135 X1000 (130-400); RBC 3.94 XMIL (4.7-6.1); RDW 13.8 % (11.5-14.5); WBC 6.34 X1000 (4.8-10.8)
--- NOTE | 2019-04-13 06:40 | Diag Imaging Result Doc PS360 ---
EXAM: CHEST-PORTABLE HISTORY: dyspnea TECHNIQUE: Portable chest single view COMPARISON: 04/12/2019 FINDINGS: The endotracheal tube has been removed. The lungs are moderately expanded although there is basilar atelectasis versus small infiltrates. No cardiomegaly. No pulmonary edema. IMPRESSION: Small basilar infiltrates versus atelectasis Electronically signed by Silverio Juarez 04/13/2019 6:37 AM
[2019-04-13 07:07] LABS: AGAP 15; BUN 11 mg/dL (8-22); CALCIUM 7.9 mg/dL (8.8-10.2); CHLORIDE 103 mmol/L (98-107); COSMO 281; CREATININE 0.5 mg/dL (0.7-1.2); ESTIMATED GFR > 60; GLUCOSE 68 mg/dL (70-104); MAGNESIUM 1.8 mg/dL (1.5-2.7); PHOSPHORUS 2.2 mg/dL (2.7-4.5); POTASSIUM 3.6 mmol/L (3.5-5.1); SODIUM 142 mmol/L (136-145); TCO2 24 mmol/L (25-35)
[2019-04-13] MEDS: LOVENOX SUBQ SCH (08:40)
[2019-04-13] MEDS: PERIDEX MT SCH ×2 (08:40→20:13)
[2019-04-13] MEDS ORDERED: SODIUM PHOSPHATE 35 MMOL in NS 250 ML IV ONE (10:00)
--- NOTE | 2019-04-13 12:48 | PROGRESS NOTE ---
DATE: 04/13/2019 SUBJECTIVE: The patient has been feeling okay. He has been extubated yesterday. Breathing comfortable. is at bedside. Does not report any problem. OBJECTIVE: Vital Signs: Temperature 99 degrees, heart rate 64, respiratory rate 14, blood pressure 115/77, O2 saturation 97% on 3 L nasal cannula. General: This is a chronically ill- appearing, 63-year-old, male, lying in bed in no acute distress. HEENT: Head is normocephalic, atraumatic. Mucous membranes very dry. Neck: No JVD noted. No carotid bruits. No lymphadenopathy. No thyromegaly. Cardiovascular: S1, S2 heard. No murmurs, gallops, or rubs. Regular rate and rhythm. Respiratory: Clear bilaterally to auscultation. No work of breathing. Not using accessory muscles. Abdomen: Soft, nontender to palpation, nondistended. Bowel sounds present. No organomegaly. Extremities: No clubbing or cyanosis noted. Neurological: The patient is alert, nonverbal. He communicates with an iPad. LABORATORY DATA: White cell count 6.34, hemoglobin 11.6, hematocrit 35.4, platelets 135,000. ABG shows pH 7.50, with pCO2 of 38, with PO2 of 148. Normal BMP. ASSESSMENT AND PLAN: 1. Sigmoidectomy with colostomy for sigmoid volvulus, postoperative day #3. General Surgery following this patient. Will follow recommendations. 2. Acute hypoxemic respiratory failure associated with sepsis. The patient has been successfully extubated yesterday. He is requiring oxygen by nasal cannula, [address] Iyer from Pulmonary is following this patient. Will follow recommendation. 3. Amyotrophic lateral sclerosis. Aware. Will continue with home medications. 4. Nutritional status. There has been an order for swallow evaluation for concern for possible aspiration pneumonia. We are going to do that today, and we can start clear liquids if he is able to pass that test. 5. Community-acquired pneumonia. The patient is empirically on antibiotics. Blood culture and urine culture are still pending. Will continue to monitor. 6. Hypokalemia, hypophosphatemia. We are going to replenish phosphorus. Will continue to monitor this patient closely. cc: Ladarius Kay MD [facility]
--- NOTE | 2019-04-13 14:10 | GASTROENTEROLOGY PROGRESS NOTE ---
DATE: 04/13/2019 SUBJECTIVE: Mr. Aguilar 63 year old male resting in bed. He is in unable to communicate verbally, but was alert and oriented and was giving a positive nod when asked a few questions on how he was doing. OBJECTIVE: Vital Signs: Temperature 99 degrees, pulse is 71, respirations are 13, oxygen saturation is 86, he is on nasal cannula 3 L. General: He is alert, oriented x2, nonverbal, and in no acute distress. HEENT: Pale conjunctivae. No icterus. PERRL. Neck: Supple. Lungs: Clear to auscultation in the anterior and posterior madrigal. Cardiovascular: Regular rate and rhythm. No murmurs, gallops, or rubs heard on auscultation. Abdomen: Midline incision with dressing dry and intact. Has a colostomy in the left lower quadrant, and it is draining yellow stools. Extremities: No cyanosis or clubbing, generalized edema in the lower extremities bilaterally, 1+ pedal pulses present bilaterally. Neurologic: He is aphasic, paraplegic, contractures, and weakness noted in the upper extremities and the lower extremities due to ALS. LABORATORY DATA: Last WBC was 6.34, RBC 3.94, hemoglobin 11.6, hematocrit 35.4, platelet count is 135,000. Blood gas showed pH is 7.5, pCO2 is 38, PO2 is 148, SaO3 is 29.7. Sodium is 142, potassium 36, chloride is 103, carbon dioxide 24, anion gap 15, BUN is 11, creatinine is 0.5, calcium is 7.9. Phosphorus is 2.2, magnesium is 1.8. AST 28, ALT 18, alkaline phosphatase 46, his albumin is 2.8. Urine showed trace of protein, ketones. MICROBIOLOGY: Sputum culture showed white blood cells. Urine culture showed no growth. Blood culture results are pending. IMAGING: Chest x-ray showed small basilar infiltrate versus atelectasis. Abdominal CT showed sigmoid colon volvulus with severe gaseous distention. Abdominal x-ray showed obstructed, dilated colon in the right abdomen, possible distal obstruction on the volvulus. IMPRESSION: 1. Sigmoid volvulus post status sigmoidectomy. 2. Status post Colostomy. 3. Amyotrophic lateral sclerosis. 4. Pneumonia. 5. Anemia. 6. Acute hypoxemia. 7. Hypophosphatemia PLAN: Patient is currently n.p.o, awaiting swallow evaluation. He is on GI prophylaxis with Nexium and will continue for 6 to 8 weeks, antiemetic Zofran and antibiotic Zosyn. Start Bowel regimen with Miralax once able to swallow. We will continue to monitor his CBC and BMP, follow the plan of care as per his PCP and the surgeon. The plan was discussed with Dr. Pride. Please call us for any further questions or concerns. Dictated by JUAN M Forbes for Carter Pride MD cc: Carter Pride MD Patient seen and examined myself. I agree with the above plan of care. I have discussed the above with the patient's and primary care team. Please call us with any further questions. ESTEVAN
[2019-04-13] MEDS: NEXIUM IV SCH (16:05)
--- NOTE | 2019-04-13 22:09 | GENERAL SURGERY PROGRESS NOTE ---
DATE: 04/12/2019 SUBJECTIVE: The patient reports to me that he is feeling better. He denies abdominal or back pain or nausea. OBJECTIVE: Vital signs: He is afebrile. Vital signs are stable. He has been extubated. General: He is alert. He is responsive. Cardiovascular: Regular rate and rhythm. Respiratory: No increased work of breathing on nasal cannula. Gastrointestinal: Soft nondistended, not tender. Incisional dressing is clean and dry. His left lower quadrant stoma looks mildly dusky, but there is some flatus in the bag and liquid effluent. LABORATORY: White blood cell count 6, hemoglobin 11.6, hematocrit 35. Electrolytes reviewed and are unremarkable. ASSESSMENT AND PLAN: A 63-year-old male postoperative day 2, sigmoid resection with end colostomy for sigmoid volvulus. He has amyotrophic lateral sclerosis and pneumonia. He appears to be stable at this time. We will let him start a liquid diet as tolerated after a swallow evaluation. I think we should keep him on Zosyn for now but could probably stop that tomorrow if he looks okay for the recent bowel resection; however, if he is stable, I think we could stop that tomorrow in regards to the bowel resection; however, he may need to stay on it because of the pneumonia. cc: Toan Contreras MD
--- NOTE | 2019-04-14 02:35 | PULMONOLOGY PROGRESS NOTE ---
DATE: 04/13/2019 SUBJECTIVE: The patient is awake and alert. He indicates he is okay with a gentle head nod. He can not cough but has a slight acballero. OBJECTIVE: Vital Signs: The patient has been afebrile for the last 24 hours. Blood pressure 119/82, heart rate 78, respiratory rate 15, oxygen saturation 97%. HEENT: Pupils are equal and reactive. Oropharynx appears clear. Neck: Supple. Chest: Reveals occasional rhonchi at the right base. Cardiac: S1-S2. Abdomen: Soft. Extremities: Without edema. He has significant muscle wasting. LABORATORIES: Chest x-ray reveals bibasilar atelectasis. Microbiology reveals no growth from the sputum culture. White blood count 6.34, hemoglobin 11.6, platelet count 135,000. Arterial blood gas on BiPAP reveals a pH of 7.50, pCO2 of 38, PO2 of 148. Sodium 142, potassium 3.6, chloride 103, bicarbonate 24, BUN 11, creatinine 0.5. IMPRESSION: A 63-year-old with 1. Amyotrophic lateral sclerosis. 2. Acute hypoxemic respiratory failure. 3. Bibasilar atelectasis. 4. Status post bowel resection for colonic volvulus. DISCUSSION: A 63-year-old with problems outlined above. He has some bibasilar atelectasis. He has tolerated extubation. His pulmonary status remains marginal. PLAN: 1. Continue to encourage huffing and deep breathing. 2. Encourage BiPAP during the day and at night to prevent diaphragmatic weakness. 3. Continue bronchial hygiene. 4. Diet to be advanced per General Surgery. cc: Magnus Iyer MD
[2019-04-14] MEDS: ZOSYN 3.375 GM in NS 50 ML IV SCH (05:25)
[2019-04-14 06:44] LABS: AGAP 21; BUN 14 mg/dL (8-22); CALCIUM 8.2 mg/dL (8.8-10.2); CHLORIDE 102 mmol/L (98-107); COSMO 285; CREATININE 0.6 mg/dL (0.7-1.2); ESTIMATED GFR > 60; GLUCOSE 57 mg/dL (70-104); POTASSIUM 3.5 mmol/L (3.5-5.1); SODIUM 144 mmol/L (136-145); TCO2 21 mmol/L (25-35)
[2019-04-14] MEDS: LOVENOX SUBQ SCH (09:30)
[2019-04-14] MEDS: PERIDEX MT SCH ×2 (09:30→21:26)
--- NOTE | 2019-04-14 14:58 | PROGRESS NOTE ---
DATE: 04/14/2019 SUBJECTIVE: 1. He came in with abdominal pain, back pain, and nausea. A 63-year-old gentleman with history of ALS and hypertension, presented to the emergency room with his complaining of constipation and back pain and decreased urinary output. Mr. Muniz has had bowel regimen that kept on Tuesdays and . stated the patient has been in normal state of health. On Wednesday, she gave him 2 Linzess pills; 2 hours later she gave him some coffee and prune juice and no bowel movement, very little urine output. He began to get nauseated and have back pain. Brought to the emergency room. Bladder scan performed in the emergency room was 145 mL. KUB revealed obstructed dilated colon. Right abdomen dilated to 10 cm with possible distal obstruction or volvulus. Dr. Contreras was consulted, Dr. Cobb, Gastroenterology, consulted. [place] he had a sigmoid colon volvulus, severe gaseous distention with pneumatosis coli of the sigmoid colon. So, the patient taken to surgery for colostomy and colon resection per Dr. Contreras. He was put on broad-spectrum antibiotic coverage with Zosyn. 2. Leukocytosis secondary to #1. 3. Hypertension. 4. Tachycardia. I did give him some fluid. 5. Amyotrophic lateral sclerosis. 6. Bilateral atelectasis in the bases. So, continue pulmonary toilet. He is doing very well. PHYSICAL EXAMINATION: General: On exam today, he is awake and alert and comfortable. Vital Signs: Temperature 98.1 degrees, pulse 86, respirations 16, blood pressure 149/81. Eyes: Pupils are equal round. Lungs: Clear in all lung madrigal. Cardiovascular exam: Regular rhythm and rate without murmur or S3. : Urine output was 800 mL. ASSESSMENT AND PLAN: 1. Amyotrophic lateral sclerosis. 2. Acute hypoxemic respiratory failure, improved. 3. Bibasilar atelectasis. 4. Status post bowel resection for colonic volvulus, healing well. Continue present regimen. LABORATORY DATA: Note that on his lab today electrolytes look good. Sodium 144, potassium 3.5, chloride 102. BUN 14, creatinine 0.6. cc: Teo Rowan MD
[2019-04-14] MEDS: NEXIUM IV SCH (17:50)
--- NOTE | 2019-04-14 19:17 | GENERAL SURGERY PROGRESS NOTE ---
DATE: 04/14/2019 SUBJECTIVE: The patient has no acute complaints. He denies abdominal or back pain. He denies nausea. The speech pathologist evaluated him this morning and he was able to tolerate a pureed diet, which he has been eating some today. OBJECTIVE: Vital Signs: He is afebrile. Vital signs are stable. General: He is awake and alert. No acute distress. Gastrointestinal: Soft, nondistended. Incisional dressing was soiled; however, it has been cleaned and a new one has been placed. His stoma has a new bag on it. There is not much coming out at this point. LABORATORY: Basic metabolic profile reviewed and unremarkable. ASSESSMENT AND PLAN: A 63-year-old male, status post sigmoid colon resection for volvulus in the setting of amyotrophic lateral sclerosis. He is stable and can be transferred to the floor, in my opinion. He is to eat a diet as tolerated. He and his family are undergoing stoma teaching and can be discharged once he has good stoma output and they can take care of it. cc: Toan Contreras MD
[2019-04-15] MEDS: PERIDEX MT SCH ×2 (10:49→21:30)
[2019-04-15] MEDS: LOVENOX SUBQ SCH (10:49)
--- NOTE | 2019-04-15 12:53 | PROGRESS NOTE ---
DATE: 04/15/2019 SUBJECTIVE: Mr. Muniz is feeling much better, his and mother were at the bedside. OBJECTIVE: Vitals: Temperature 98.6 degrees, pulse 70, respirations 12, blood pressure 124/84. HEENT: Pupils are equal and round. Lungs: Clear in all lung madrigal. Cardiovascular: Regular rhythm and rate without murmur or S3. Abdomen: Soft. Skin: Warm and dry. URINE OUTPUT: 1600 mL. ASSESSMENT AND PLAN: 1. Amyotrophic lateral sclerosis, presented with abdominal pain and found intussusception, and had a colectomy. Seems to be doing well. He had a volvulus in the setting of ALS. 2. Nutrition. Seems to be tolerating p.o. intake well. I think he can move to PVC. 3. ALS. His breathing is doing well. REVIEW OF ORDERS: He is on Lovenox 30 mg subcutaneous q.24 hours, and Nexium 40 mg IV q.24 hours. cc: Teo Rowan MD
--- NOTE | 2019-04-15 14:46 | GENERAL SURGERY PROGRESS NOTE ---
DATE: 04/15/2019 SUBJECTIVE: He is doing well. His ostomy is functioning. No fevers. No tachycardia. He is tolerating diet this morning. OBJECTIVE: Vital Signs: Blood pressure 124/87. General: He is alert. His is here at the bedside. Abdomen: Is soft. Ostomy has stool and gas in the bag. No new labs this morning. ASSESSMENT AND PLAN: A 63-year-old gentleman with end-stage ALS, sigmoid volvulus, status post Vamsi's type procedure by Dr. Contreras. Overall, he is doing okay. We will continue to advance diet, nutritional support, physical therapy. He is on Lovenox. cc: Yosi Downing MD
[2019-04-15] MEDS: SODIUM CHLORIDE 0.9% INJ SCH (18:20)
[2019-04-15] MEDS: NEXIUM IV SCH (18:20)
[2019-04-16] MEDS: LOVENOX SUBQ SCH (09:58)
[2019-04-16] MEDS: PERIDEX MT SCH ×2 (09:58→20:00)
--- NOTE | 2019-04-16 13:42 | PROGRESS NOTE ---
DATE: 04/16/2019 SUBJECTIVE: Mr. Muniz is sitting up, looking at his laptop. He is comfortable. Breathing comfortably. OBJECTIVE: Remains afebrile, temperature 98.4 degrees, pulse 80, respirations 14, blood pressure 130/83. Pupils are equal and round. Lungs are clear in all lung madrigal. Cardiovascular Examination: Regular rhythm and rate without murmur or S3. Abdomen is soft. Skin is warm and dry. Urine output 1300 mL. ASSESSMENT AND PLAN: 1. Amyotrophic lateral sclerosis. Presented with abdominal pain and found a volvulus, required colectomy, doing well, healing well. 2. Nutrition. Continue to encourage oral intake. 3. Did have some bibasilar atelectasis. His respiratory status looks good. REVIEW OF HIS ORDERS: I do not see any change. REVIEW OF HIS LAB: Unremarkable. Hemoglobin is 11.6, hematocrit 35. cc: Teo Rowan MD
--- NOTE | 2019-04-16 16:47 | GENERAL SURGERY PROGRESS NOTE ---
DATE: 04/16/2019 SUBJECTIVE: He continues to have bowel function. His appetite is improving. His is starting tube feed via his gastrostomy. OBJECTIVE: Abdomen: Soft, nontender. Ostomy has stool and gas in the bag. Cardiovascular: Normal rate, regular rhythm. LABORATORY: I reviewed his labs. ASSESSMENT AND PLAN: A 63-year-old gentleman status post Vamsi's procedure for sigmoid volvulus. I have discussed intermittent feeds via his gastrostomy tube as well as p.o. for comfort. I have asked to administer 1/3 to 1/2 bottle of Ensure with each meal and monitor his tolerance of this. cc: Yosi Downing MD
[2019-04-16] MEDS: SODIUM CHLORIDE 0.9% INJ SCH (17:42)
[2019-04-16] MEDS: NEXIUM IV SCH (17:42)
[2019-04-17 04:27] LABS: ALLEN TEST YES; BE 2.7 mmoll (-3.0-3.0); BLOOD TYPE ARTERIAL; METHB 0.9 % (0.0-1.5); O2(CT) 18.5 mL/dL (15.0-23.0); O2HB 97.4 % (95.0-99.0); PCO2(98.6) 44 mmHg (35-45); PO2(98.6) 130 mmHg (60-100); SAMPLE BLOOD; SAO2 99.7 % (95.0-100.0); THB 13.4 g/dL (11.5-17.4); pH(98.6) 7.41 (7.35-7.45)
[2019-04-17 04:29] LABS: MODALITY CANNULA
[2019-04-17 06:11] LABS: EOS# 0.11 X1000 (0.0-0.7); HEMATOCRIT 33.9 % (42.0-52.0); HEMOGLOBIN 11.2 g/dL (14.0-18.0); IMM GRAN# 0.03 X1000 (0.0-0.04); IMM GRAN% 0.5 % (0.0-0.5); LYMPH# 1.09 X1000 (1.2-3.4); LYMPH% 19.8 % (20.5-51.1); MCH 29.9 PG (27-31); MCV 90.6 FL (81-99); MONO# 0.37 X1000 (0.11-0.59); MONO% 6.7 % (1.7-9.3); MPV 9.6 FL (7.4-10.4); NEUT# 3.91 X1000 (1.4-6.5); PLT 153 X1000 (130-400); RBC 3.74 XMIL (4.7-6.1); RDW 13.7 % (11.5-14.5); WBC 5.51 X1000 (4.8-10.8)
[2019-04-17 06:36] LABS: AGAP 15; BUN 8 mg/dL (8-22); CALCIUM 8.4 mg/dL (8.8-10.2); CHLORIDE 108 mmol/L (98-107); COSMO 295; CREATININE 0.4 mg/dL (0.7-1.2); ESTIMATED GFR > 60; GLUCOSE 77 mg/dL (70-104); POTASSIUM 3.1 mmol/L (3.5-5.1); SODIUM 150 mmol/L (136-145); TCO2 27 mmol/L (25-35)
[2019-04-17] MEDS: LOVENOX SUBQ SCH (10:47)
[2019-04-17] MEDS: PERIDEX MT SCH ×2 (10:47→20:19)
[2019-04-17] MEDS: SODIUM CHLORIDE 0.9% INJ SCH (16:28)
[2019-04-17] MEDS: NEXIUM IV SCH (16:28)
--- NOTE | 2019-04-17 18:20 | PROGRESS NOTE ---
DATE: 04/17/2019 SUBJECTIVE: Mr. Muniz is doing very well. He has eaten today. Breathing is comfortable. Appears stronger. OBJECTIVE: Vital signs: Temp 98.4 degrees, pulse 67, respirations 14, blood pressure 136/73. HEENT: Pupils are equal and round. Lungs: Clear in all lung madrigal. Cardiovascular: Regular rhythm and rate without murmur or S3. Urine output was 1000 mL. LAB: Review of his lab. Hematocrit stable at 33, hemoglobin 11. ASSESSMENT AND PLAN: 1. Status post Vamsi's procedure for sigmoid volvulus. He is getting intermittent feeds with his gastrostomy tube as well as p.o. intake. So, has been instructed to administer 1/3 to 1/2 bottle of Ensure with each meal and monitor his tolerance of this. 2. Amyotrophic lateral sclerosis. Presented with abdominal pain, found to have volvulus, and required a colectomy. 3. His nutrition has improved. P.o. intake has improved. REVIEW OF HIS ORDERS: I do not see any change. cc: Teo Rowan MD
[2019-04-18 05:56] LABS: AGAP 18; BUN 9 mg/dL (8-22); CHLORIDE 103 mmol/L (98-107); COSMO 288; CREATININE 0.3 mg/dL (0.7-1.2); ESTIMATED GFR > 60; GLUCOSE 80 mg/dL (70-104); POTASSIUM 2.9 mmol/L (3.5-5.1); SODIUM 146 mmol/L (136-145); TCO2 25 mmol/L (25-35)
--- NOTE | 2019-04-18 06:59 | Diag Imaging Result Doc PS360 ---
CHEST-PORTABLE - 04/18/2019 INDICATION: abnormal exam COMPARISON: 04/13/2019 FINDINGS: Lung volumes remain relatively low. The lungs are clear. Heart size is normal. No pneumothorax or pleural effusion. IMPRESSION: No acute disease. Electronically signed by Hossein Gunter 04/18/2019 6:57 AM
[2019-04-18] MEDS ORDERED: MAGNESIUM SULFATE 1 GM/D5W 1 GM/100 ML IVPB IV ONE (07:00)
--- NOTE | 2019-04-18 07:01 | GENERAL SURGERY PROGRESS NOTE ---
DATE: 04/17/2019 SUBJECTIVE: The patient is doing well overall. No acute events over the weekend. He is tolerating a liquid diet, and eating some small bits of food. He is having bowel function through the ostomy. He denies pain. OBJECTIVE: Vital Signs: He is afebrile. Vital signs are stable. General: He is awake and alert. No acute distress. Gastrointestinal: Soft, nondistended, nontender. Incision is intact. No drainage. Stoma is patent. LABORATORY DATA: CBC and metabolic profile were reviewed and notable for sodium of 150, potassium 3.1. ASSESSMENT AND PLAN: A 63-year-old male with amyotrophic lateral sclerosis, status post sigmoidectomy for sigmoid volvulus. Overall, he is doing well. We will wean his oxygen to off, and discontinue the Lisa catheter. He is using his gastrostomy tube for supplementing his oral diet, putting the rest of his Ensure down it. I will also order some free water replacement, and recheck his sodium tomorrow. He needs further ostomy education and support prior to discharge, and I think he would benefit from home health, at least for a few weeks, to continue with ostomy care. cc: Toan Contreras MD
--- NOTE | 2019-04-18 07:59 | PULMONOLOGY PROGRESS NOTE ---
DATE: 04/17/2019 SUBJECTIVE: The patient is awake and alert. He can communicate with his assisting. He is taking some p.o. intake. His reports he is very stiff and difficult to move. OBJECTIVE: Vital Signs: The patient has been afebrile for the last 24 hours. Blood pressure 119/71, heart rate 76, respiratory rate 12, oxygen saturation 100% on 2 L per nasal cannula. HEENT: Pupils are equal and reactive. Oropharynx appears clear. Neck: Is supple. Chest: Reveals good lung sounds in all lung madrigal in all in all 4 quadrants. Cardiac: S1, S2. Abdomen: Is soft. Extremities: Reveal significant muscle wasting. LABORATORIES: White blood count 5.51, hemoglobin 11.2, platelet count 153,000. Sodium 150, potassium 3.1, chloride 108, BUN 8, creatinine 0.4. Arterial blood gas, pH 7.41, pCO2 of 44, PO2 of 130 on nasal cannula. IMPRESSION: A 63-year-old with 1. Amyotrophic lateral sclerosis. 2. Acute hypoxemic respiratory failure. 3. Atelectasis bilaterally. 4. Status post bowel resection for colonic volvulus. PLAN: 1. Continue bronchial hygiene. 2. Continue to cycle BiPAP at bedtime and p.r.n. 3. Chest x-ray tomorrow. 4. Anticipate the need for an ambulance for transfer home at the time of discharge. cc: Magnus Iyer MD
[2019-04-18] MEDS ORDERED: POTASSIUM CHLORIDE 60 MEQ in NS 500 ML IV ONE (08:00)
[2019-04-18] MEDS: PERIDEX MT SCH ×2 (10:49→21:53)
[2019-04-18] MEDS: LOVENOX SUBQ SCH (10:49)
--- NOTE | 2019-04-18 13:14 | PROGRESS NOTE ---
DATE: 04/18/2019 SUBJECTIVE: Mr. Muniz is doing better, much better. He is anxious to try and go home tomorrow. OBJECTIVE: Temp 98.4 degrees, pulse 61, respirations 15, blood pressure 129/76.HEENT: Pupils are equal and round. Lungs: Clear in all lung madrigal. Cardiovascular: Regular rate without murmur or S3. Abdomen: Soft. Skin: Warm and dry. Chest x-ray showed no acute disease. Lung volumes remain low, but lungs are clear. Heart size was normal. ASSESSMENT AND PLAN: 1. Amyotrophic lateral sclerosis. 2. Acute hypoxemic respiratory failure. 3. Atelectasis bilaterally. 4. Status post bowel resection for chronic volvulus, doing much better. 5. Continue bronchial hygiene. Continue cyclic BiPAP at bedtime p.r.n. Chest x-ray looks good and anticipate he will go home tomorrow. Will need ambulance for transportation. I do not see any other changes. cc: Teo Rowan MD
[2019-04-18 15:21] LABS: AGAP 14; BUN 9 mg/dL (8-22); CHLORIDE 103 mmol/L (98-107); COSMO 283; CREATININE 0.4 mg/dL (0.7-1.2); ESTIMATED GFR > 60; GLUCOSE 95 mg/dL (70-104); MAGNESIUM 1.9 mg/dL (1.5-2.7); POTASSIUM 2.7 mmol/L (3.5-5.1); SODIUM 143 mmol/L (136-145); TCO2 26 mmol/L (25-35)
--- NOTE | 2019-04-18 22:20 | PULMONOLOGY PROGRESS NOTE ---
DATE: 04/18/2019 SUBJECTIVE: The patient is awake, alert and interactive. He appears comfortable. OBJECTIVE: The patient has been afebrile for the last 24 hours. Blood pressure 132/80, heart rate 70, respiratory rate 17, oxygen saturation 100% on room air.HEENT: Pupils are equal and reactive. Oropharynx appears clear. Neck: Supple. Chest: Reveals shallow breath sounds bilaterally without wheezing or rhonchi. Cardiac Exam: S1-S2. Abdomen: Soft. Extremities: Reveal generalized muscle wasting. LABORATORIES: Chest x-ray reveals shallow inspiration, but lung madrigal are now clear. IMPRESSION: 63-year-old with 1. Hemiatrophic lateral sclerosis. 2. Hypoxemic respiratory failure. 3. Atelectasis bilaterally which has resolved. 4. Status post bowel resection for colonic volvulus. PLAN: 1. Continue bronchial hygiene. 2. BiPAP at bedtime and p.r.n. 3. Anticipate discharge home by ambulance soon after his has undergone colostomy training. cc: Magnus Iyer MD
[2019-04-19 06:02] LABS: AGAP 16; BUN 8 mg/dL (8-22); CALCIUM 8.1 mg/dL (8.8-10.2); CHLORIDE 106 mmol/L (98-107); COSMO 287; CREATININE 0.4 mg/dL (0.7-1.2); ESTIMATED GFR > 60; GLUCOSE 73 mg/dL (70-104); MAGNESIUM 1.7 mg/dL (1.5-2.7); POTASSIUM 3.1 mmol/L (3.5-5.1); SODIUM 146 mmol/L (136-145); TCO2 24 mmol/L (25-35)
[2019-04-19] MEDS: PERIDEX MT SCH (10:11)
[2019-04-19] MEDS: LOVENOX SUBQ SCH (10:11)
[2019-04-19 11:12] VITALS: BP 143/76
--- NOTE | 2019-04-19 13:46 | DISCHARGE SUMMARY ---
ADMISSION DATE: 04/11/2019 DISCHARGE DATE: 04/19/2019 HISTORY: Mr. Muniz was admitted on 04/11/2019 and discharged on 04/19/2019. He has no primary care physician. He has abdominal pain, back pain and nausea. A 63-year-old with history of ALS and hypertension, presented to the emergency room. His complained of constipation, back pain and decreased urinary output. Mr. Muniz has a set bowel regimen that they keep on Tuesdays and . He stated that he had been in his normal state of health, and on Wednesday gave him 2 of his Linzess pills; 2 hours later they gave him some coffee and prune juice, but no bowel movement and very little urine output. Bladder scan performed in the emergency room showed 145 mL of urine. KUB showed obstructive dilated colon, and right abdomen dilated to 10 cm, possible distal obstruction or volvulus. Dr. Contreras consulted. Dr. Cobb for Gastroenterology. CT of the abdomen and pelvis with contrast performed reveals sigmoid colon volvulus, severe gaseous distention, and pneumatosis coli of the sigmoid colon. Dr. Contreras and Dr. Cobb discussed the results of the scan, and decided the patient will need to be taken for surgery. He was admitted and taken to surgery on 04/11/2019 where they found sigmoid volvulus and ischemic bowel. They did an open sigmoidectomy with Vamsi's pouch and end-colostomy. Pulmonary asked to follow. Dr. Iyer is familiar with the patient. Acute hypoxemic respiratory failure and bibasilar atelectasis. He was continued on the vent, and was able to wean off the vent. Collected sputum for C and S, and continued bronchodilator thigh therapy. The patient showed steady improvement and was receiving parental nutrition. Able to progress with feeding, and start eating a diet. His appetite improved. Breathing improved. It was felt he could go home on 04/19/2019 with help of home health. Continue his bronchial hygiene and BiPAP at nighttime p.r.n. Discharge medications he is to be on, I really do not see any medications that he is going to need to stay on at home. He was on baclofen. He gets his Linzess, which I think they can start back. He is off his lisinopril at this time, and no antibiotics. cc: Teo Rowan MD
== END 2019-04-19 17:01 | disposition home health service (06) | DRG 329 ==
LOC: P.ED 02:04 → 4N 06:47 → SUATTDRO 06:47 → 4N 08:09 → ICU 14:41 → 2N 04-16 18:40
PROVIDERS: ATTEND Emergency Medicine
PROC: GE.COLS (2019-04-11 12:41)